=== PATIENT | male | born 1965 | race Caucasian/White ===

== ENCOUNTER 2021-03-14 09:20 | Day surgery (SDC) | payer BC ==
[2021-03-10 09:29] VITALS: BMI 27.3
[2021-03-14 11:10] VITALS: TEMP 98.4
[2021-03-14 12:29] VITALS: BP 126/92; PULSE 74
== END 2021-03-14 11:30 | disposition home or self-care (01) ==
LOC: EDSEX → FASU-ENDO 09:20
PROVIDERS: ATTEND Internal Medicine Gastroenterology
PROC: 0DJD8ZZ Inspection of Lower Intestinal Tract, Via Natural or Artificial Opening Endoscopic (ICD-10-PCS; principal; 2021-03-14 10:35)
DX: Z12.11 Encounter for screening for malignant neoplasm of colon (principal)